=== PATIENT | male | born 1965 | race Asian ===

== ENCOUNTER 2019-12-22 09:18 | Emergency (ER) | payer SELFPAY ==
[~2019-12-22] VITALS: Ht 167.6 cm; Wt 68.0 kg
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
[2019-12-22 09:50] LABS: BASOPHILS # (AUTO) 0.02 x10^3/uL (0-0.1); BASOPHILS % (AUTO) 1 % (0-1); EOSINOPHILS # (AUTO) 0.12 x10^3/uL (0-0.4); EOSINOPHILS % (AUTO) 3 % (1-7); LYMPHOCYTES # (AUTO) 1.01 x10^3/uL (1-3.4); LYMPHOCYTES % (AUTO) 28 % (22-44); MD NO; MEAN CORPUSCULAR HEMOGLOBIN 28.5 pg (27.5-34.5); MEAN CORPUSCULAR HGB CONC 32.3 g/dL (33.2-36.2); MEAN CORPUSCULAR VOLUME 88.2 fL (81-97); MEAN PLATELET VOLUME 7.1 fL (7.4-10.4); MONOCYTES # (AUTO) 0.43 x10^3/uL (0.2-0.8); MONOCYTES % (AUTO) 12 % (2-9); NEUTROPHILS # (AUTO) 2.04 x10^3/uL (1.8-6.8); NEUTROPHILS % (AUTO) 56 % (42-75); PLATELET COUNT 240 x10^3/uL (130-400); RED BLOOD COUNT 5.08 x10^6/uL (4.38-5.82)
[2019-12-22 09:57] LABS: ALBUMIN 3.6 g/dL (3.4-5.0); ANION GAP 5 mmol/L (5-15); CALCIUM 8.4 mg/dL (8.5-10.1); CHLORIDE 109 mmol/L (98-107); CREATININE 1.22 mg/dL (0.7-1.3)
[2019-12-22 10:00] LABS: TROPONIN I < 0.015 ng/mL (0.000-0.045)
[2019-12-22] MEDS ORDERED: ENALAPRILAT 1.25 MG/ML, 1ML ONE (10:19)
--- NOTE | 2019-12-22 10:22 | NUR ---
PT AMBULATED TO THE BR W/ A STEADY GAIT.
[2019-12-22] MEDS ORDERED: ENALAPRILAT 1.25 MG/ML, 2ML IV ONE (10:30)
--- NOTE | 2019-12-22 10:30 | NUR ---
PT BP IMPROVED SINCE ARRIVAL. SAID OKAY TO HOLD VASOTEC. ORTHOSTATIC VS DONE AND GIVEN TO PROVIDER.
[2019-12-22 10:31] VITALS: BP 146/109
--- NOTE | 2019-12-22 10:40 | NUR ---
IN ROOM FOR RECHECK.
[2019-12-22] MEDS ORDERED: MECLIZINE CHEWABLE 25 MG TAB ONE (11:00)
[2019-12-22] MEDS ORDERED: MECLIZINE 25 MG TABLET PO ONE (11:00)
--- NOTE | 2019-12-22 11:08 | NUR ---
PT AMBULATED TO THE BR W/ A STEADY GAIT.
== END 2019-12-22 11:09 | disposition home or self-care (01) ==
LOC: ED 10:15
DX: R55 Syncope and collapse (principal); R06.02 Shortness of breath; R07.89 Other chest pain; R42 Dizziness and giddiness; I10 Essential (primary) hypertension
CPT/HCPCS: 36415; 71045; 80048; 82040; 83880; 84484; 85025; 85379; 93005; 99285